=== PATIENT | female | born 1980 | race American Indian/Alaskan Native ===

== ENCOUNTER 2020-05-04 12:02 | Emergency (ER) | payer SELFPAY ==
--- NOTE | 2020-05-04 12:15 | Event Note ---
ED Screening Note ED Screening Note: she states she tested positive for COVID-19 on 05/02/2020 +diarrhea for two days states she feels slightly lightheaded this morning no dizziness, no room spinning She denies any fever no SOB no CP no n/v no recent travel PMHx none no allergies to meds LNMP: 04/27/2020 This initial assessment/diagnostic orders/clinical plan/treatment(s) is/are subject to change based on patients health status, clinical progression and re- assessment by fellow clinical providers in the ED. Further treatment and workup at subsequent clinical providers discretion. Patient/guardian urged not to elope from the ED as their condition may be serious if not clinically assessed and managed. Initial orders include: labs, CXR
[2020-05-04 12:18] VITALS: BP 112/83
--- NOTE | 2020-05-04 12:36 | Emergency Department Report ---
Chief Complaint: Dizziness Stated Complaint: LIGHT HEAD Time Seen by Provider: 05/04/20 12:12 - HPI History of Present Illness: This is a pleasant healthy 39-year-old female who was recently diagnosed with coronavirus COVID-19 2 days ago. Her symptoms began 7 days ago on April 27. She had fever cough loss of taste. She now has lightheadedness and diarrhea. She denies any pain. Denies shortness of breath. Vital signs reviewed were normal. She does not have acute emergent condition which needs further stabilization. She appears well. Pulse ox is 98 on room air. She understands return precautions. Medical screening exam performed and completed. She has been treating at home with Yaj[facility]. - Exam Vital Signs: Vital Signs 05/04/20 05/04/20 05/04/20 12:07 12:12 12:17 Temperature 98.4 F 98.4 F 98.4 F Pulse Rate 100 H 100 H 108 H Respiratory 18 18 18 Rate Blood Pressure 142/93 Blood Pressure 142/93 112/83 [Right] O2 Sat by Pulse 98 98 100 Oximetry MSE screening note: Focused history and physical exam performed. Due to findings the following was ordered: ED Disposition for MSE Clinical Impression: COVID-19 virus infection Disposition: Z-07 MED SCREENING EXAM-LEFT Is pt being admited?: No Does the pt Need Aspirin: No Condition: Stable Instructions: COVID-19 Additional Instructions: Please self isolate self quarantine until May 11. Forms: Work/School Release Form(ED)
== END 2020-05-04 12:48 | disposition left against medical advice (07) ==
LOC: ED 12:02
DX: R42 Dizziness and giddiness (principal); Z53.21 Procedure and treatment not carried out due to patient leaving prior to being seen by health care provider